=== PATIENT | male | born 1965 | race Caucasian/White ===

== ENCOUNTER 2023-01-24 11:58 | Observation (INO) | payer OTHER ==
[~2023-01-24] VITALS: Ht 177.8 cm; Wt 88.5 kg
[2023-01-24] VITALS (9 sets, daily range): BP systolic 105–152; BP diastolic 72–80; PULSE 71–96; RESP 17–22; TEMP 97.4–98; O2SAT 92–98
[2023-01-24 12:40] LABS: BASOPHILS # (AUTO) 0.1 (0.0-0.1); BASOPHILS % 0.8 % (0.0-1.0); EOSINOPHILS # (AUTO) 0.2 (0.0-0.4); HEMOGLOBIN 18.8 g/dL (14.0-18.0); LYMPHOCYTES # (AUTO) 2.6 (1.0-3.2); MEAN CORPUSCULAR HEMOGLOBIN 33.9 pg (28-32); MEAN CORPUSCULAR HGB CONC 34.2 g/dL (31-35); MEAN CORPUSCULAR VOLUME 99.1 fL (81-99); MONOCYTES # (AUTO) 0.9 (0.2-0.8); MONOCYTES % 10.8 % (4.4-11.3); NEUTROPHILS # (AUTO) 4.3 (2.1-6.9); NEUTROPHILS % 53.9 % (38.7-80.0); PLATELET COUNT 353 x10e3/uL (140-360); RED BLOOD COUNT 5.55 x10e6/uL (4.3-5.7)
[2023-01-24 12:48] LABS: INR 0.87; PROTHROMBIN TIME 12.3 seconds (11.9-14.5)
[2023-01-24 12:49] LABS: PARTIAL THROMBOPLASTIN TIME 31.7 seconds (23.8-35.5)
[2023-01-24 12:53] LABS: CREATINE KINASE 51 IU/L (30-200)
[2023-01-24 13:02] LABS: ALBUMIN 4.2 g/dL (3.5-5.0); ALBUMIN/GLOBULIN RATIO 1.1 (0.8-2.0); ANION GAP 16.2 mmol/L (8-16); CREATININE, SERUM 0.82 mg/dL (0.72-1.25); POTASSIUM 4.2 mmol/L (3.5-5.1)
[2023-01-24] MEDS ORDERED: Morphine 4mg INJECTION 4 MG/ML INJ IV PRN (13:45)
[2023-01-24] MEDS ORDERED: ONDANSETRON HCL INJ 2MG/ML 2ML 2 MG/ML VIAL IV PRN (13:45)
[2023-01-24] MEDS ORDERED: FENTANYL CITRATE/PF 100MCG/2 ML INJ IV PRN (14:00)
[2023-01-24] MEDS ORDERED: CLOPIDOGREL BISULFATE 75 MG TAB PO ONE ×2 (14:15→18:10)
[2023-01-24] MEDS ORDERED: METOPROLOL SUCC25 MG PO (16:12)
[2023-01-24] MEDS ORDERED: PLAVIX75 MG PO (16:12)
[2023-01-24] MEDS ORDERED: AMLODIPINE BESYL5 MG PO (16:12)
[2023-01-24] MEDS ORDERED: ATORVASTATIN CA20 MG PO (16:12)
[2023-01-24] MEDS ORDERED: ATORVASTATIN 40 MG TAB PO SCH (21:00)
[2023-01-24] MEDS: ALBUTEROL/IPRATROPIUM 3 ML NEB NEB PRN (23:15)
[2023-01-25] VITALS (17 sets, daily range): BP systolic 108–144; BP diastolic 59–94; PULSE 66–96; RESP 18–26; TEMP 97.2–98.4; O2SAT 92–98
[2023-01-25] MEDS ORDERED: SODIUM CHLORIDE 0.9% 1000ML 1,000 ML IV SCH (05:00)
[2023-01-25 05:47] LABS: BASOPHILS % 0.5 % (0.0-1.0); EOSINOPHILS # (AUTO) 0.2 (0.0-0.4); HEMATOCRIT 47.4 % (38.2-49.6); HEMOGLOBIN 16.2 g/dL (14.0-18.0); LYMPHOCYTES % 26.7 % (18.0-39.1); MEAN CORPUSCULAR HEMOGLOBIN 33.5 pg (28-32); MEAN CORPUSCULAR HGB CONC 34.2 g/dL (31-35); MEAN CORPUSCULAR VOLUME 98.1 fL (81-99); MONOCYTES # (AUTO) 0.9 (0.2-0.8); MONOCYTES % 11.6 % (4.4-11.3); NEUTROPHILS # (AUTO) 4.5 (2.1-6.9); NEUTROPHILS % 58.8 % (38.7-80.0); PLATELET COUNT 279 x10e3/uL (140-360); RED BLOOD COUNT 4.83 x10e6/uL (4.3-5.7); RED CELL DISTRIBUTION WIDTH 11.9 % (11.7-14.4)
[2023-01-25 06:10] LABS: ALBUMIN 3.3 g/dL (3.5-5.0); ALBUMIN/GLOBULIN RATIO 1.1 (0.8-2.0); CALCIUM 9.2 mg/dL (8.4-10.2); CREATININE, SERUM 0.69 mg/dL (0.72-1.25)
[2023-01-25 06:31] LABS: CHOL/HDL RATIO 3.3 (3.9-4.7); CREATINE KINASE 35 IU/L (30-200)
[2023-01-25 06:51] LABS: THYROID STIMULATING HORMONE 2.015 uIU/mL (0.350-4.940)
[2023-01-25] MEDS ORDERED: ALBUTEROL/IPRATROPIUM 3 ML NEB NEB PRN (07:45)
[2023-01-25] MEDS ORDERED: SIMETHICONE 80 MG CHEW PO PRN (07:45)
[2023-01-25] MEDS ORDERED: MELATONIN 3 MG TAB PO PRN (07:45)
[2023-01-25] MEDS ORDERED: ACETAMINOPHEN 325 MG TAB PO PRN (07:45)
[2023-01-25] MEDS ORDERED: METOPROLOL SUCCINATE 25 MG TAB XL PO SCH (09:00)
[2023-01-25] MEDS ORDERED: ASPIRIN 81 MG ENTERIC COATED PO SCH (09:00)
[2023-01-25] MEDS ORDERED: CLOPIDOGREL BISULFATE 75 MG TAB PO SCH (09:00)
[2023-01-25] MEDS ORDERED: AMLODIPINE BESYLATE 5 MG TAB PO SCH (09:00)
[2023-01-25] MEDS ORDERED: HEPARIN SOD (PORCINE) 1000 UNIT/ML 30ML ONE ×2 (09:56→10:36)
[2023-01-25] MEDS ORDERED: NITROGLYCERIN/D5W 200 MCG/ML 250 ML ONE (09:56)
[2023-01-25] MEDS ORDERED: LIDOCAINE HCL 2% LOCAL 20 ML VIAL ONE (09:56)
[2023-01-25] MEDS ORDERED: IOPAMIDOL 370 MG/ML 100 ML INFUS..BTL INJ ONE ×2 (09:56→11:18)
[2023-01-25] MEDS ORDERED: HEPARIN SOD/SOD CHLORIDE 2,000 ML ONE (09:56)
[2023-01-25] MEDS ORDERED: SODIUM CHLORIDE 0.9% 1000ML 1,000 ML ONE (09:56)
[2023-01-25] MEDS ORDERED: BIVALRIUDIN 250 MG/VIAL VIAL IV ONE (09:57)
[2023-01-25] MEDS ORDERED: MIDAZOLAM HCL 2 MG/2 ML VIAL ONE ×2 (10:22→10:50)
[2023-01-25] MEDS ORDERED: FENTANYL CITRATE/PF 100MCG/2 ML INJ ONE (10:23)
[2023-01-25] MEDS ORDERED: VERAPAMIL HCL 2.5 MG/ML 2 ML VIAL ONE (10:36)
[2023-01-25] MEDS: ALBUTEROL/IPRATROPIUM 3 ML NEB NEB PRN (14:30)
[2023-01-25] MEDS ORDERED: FAMOTIDINE 20 MG TAB PO SCH (16:30)
[2023-01-25] MEDS ORDERED: ECOTRIN81 MG PO (17:27)
[2023-01-25] MEDS ORDERED: PEPCID20 MG PO (17:27)
== END 2023-01-25 18:10 | disposition home or self-care (01) ==
LOC: ER 12:05 → ERHOLD 13:39 → MED/SURG2 14:44
PROVIDERS: ADMIT Internal Medicine; ATTEND Internal Medicine
DX: I25.110 Atherosclerotic heart disease of native coronary artery with unstable angina pectoris (principal); I25.82 Chronic total occlusion of coronary artery; I70.8 Atherosclerosis of other arteries; Z95.5 Presence of coronary angioplasty implant and graft; I73.89 Other specified peripheral vascular diseases; Z95.820 Peripheral vascular angioplasty status with implants and grafts; I11.9 Hypertensive heart disease without heart failure; J44.9 Chronic obstructive pulmonary disease, unspecified; F17.210 Nicotine dependence, cigarettes, uncomplicated; Z71.6 Tobacco abuse counseling; Z20.822 Contact with and (suspected) exposure to COVID-19; Z79.02 Long term (current) use of antithrombotics/antiplatelets
CPT/HCPCS: 36415 ×2; 71045; 71046; 75625; 80053 ×2; 80061; 82550 ×2; 83880; 84443; 84484 ×2; 85025 ×2; 85610; 85730; 93005 ×2; 93306; 93458; 93925; 94640 ×2; 94799 ×2; C1887; G0378 ×2; J1644; J2001; J2250; J3010; J7030; Q9967; U0002; 99152; 99153; J0583